=== PATIENT | male | born 1980 | race Caucasian/White ===

== ENCOUNTER 2018-08-08 10:26 | Emergency (ER) | payer SELFPAY ==
[2018-08-08 11:43] VITALS: BP 113/73
--- NOTE | 2018-08-08 12:13 | UC ---
Skin Complaint HPI - HPI Summary HPI Summary: 37 year old male presents with 1 week history of rash to his bilateral forearms. States rash is itchy and tender to touch. Started with a couple of lesions and has spread to other areas on his forearms. Denies fever, chills, swelling of lips, tongue, throat, difficulty breathing, drainage, changes in soaps, detergents, medications, diet, or known contact with environmental irritants. - History of Current Complaint Chief Complaint: UCSkin Time Seen by Provider: 08/08/18 11:56 Stated Complaint: SKIN CONCERN Hx Obtained From: Patient Pain Intensity: 2 - Allergy/Home Medications Allergies/Adverse Reactions: Allergies Allergy/AdvReac Type Severity Reaction Status Date / Time No Known Allergies Allergy Verified 08/08/18 11:40 Home Medications: Home Medications Activated Charcoal [Charcoal] 200 mg PO ONCE 08/08/18 [History Confirmed ] PMH/Surg Hx/FS Hx/Imm Hx Previously Healthy: Yes - Denies significant PMH - Surgical History Surgical History: None - Family History Known Family History: Positive: Non-Contributory - Social History Occupation: Employed Full-time Lives: Dormitory/Roommates Alcohol Use: Occasionally Substance Use Type: None Smoking Status (MU): Light Every Day Tobacco Smoker Type: Cigarettes, Smokeless Tobacco Amount Used/How Often: smokes socially; chews daily Review of Systems All Other Systems Reviewed And Are Negative: Yes Constitutional: Negative: Fever, Chills Skin: Positive: Rash - See HPI ENT: Positive: Negative Respiratory: Positive: Negative Cardiovascular: Positive: Negative Gastrointestinal: Positive: Negative Genitourinary: Positive: Negative Musculoskeletal: Positive: Negative Neurological: Positive: Negative Is Patient Immunocompromised?: No Physical Exam - Summary Physical Exam Summary: GENERAL APPEARANCE: Well developed, well nourished, alert and cooperative, and appears to be in no acute distress. EYES: Conjunctiva clear. No drainage. PERRL, EOM intact. Vision is grossly intact. EARS: External auditory canals and tympanic membranes clear, hearing grossly intact. NOSE: No nasal discharge. MOUTH/THROAT: No swelling of lips, tongue, or throat. Pharynx normal No tonsilar inflammation, swelling, exudate, or lesions. Uvula midline. Oral cavity normal. Teeth and gingiva in good general condition. Airway patent. NECK: Neck supple, non-tender without lymphadenopathy. CARDIAC: Normal S1 and S2. No S3, S4 or murmurs. Rhythm is regular. There is no peripheral edema, cyanosis or pallor. Extremities are warm and well perfused. Capillary refill is less than 2 seconds. Peripheral pulses intact. LUNGS: Clear to auscultation without rales, rhonchi, wheezing or diminished breath sounds. ABDOMEN: Positive bowel sounds. Soft, nondistended, nontender. No guarding or rebound. No masses or hepatosplenomegally. MUSKULOSKELETAL: ROM intact to all extremities. No joint erythema or tenderness. Normal muscular development. Normal gait. SKIN: Multiple tender, pruritic, discrete, maculopapular lesions with central excoration and crusting to patient's bilateral forearms. Triage Information Reviewed: Yes Vital Signs: Initial Vital Signs Temp 98.0 F 08/08/18 11:38 Pulse 63 08/08/18 11:38 Resp 15 08/08/18 11:38 BP 113/73 08/08/18 11:38 Pulse Ox 100 08/08/18 11:38 Vital Signs Reviewed: Yes Course/Dx - Course Course Of Treatment: 37 year old male presents with 1 week history of rash to his bilateral forearms. States rash is itchy and tender to touch. Started with a couple of lesions and has spread to other areas on his forearms. Denies fever, chills, swelling of lips, tongue, throat, difficulty breathing, drainage, changes in soaps, detergents, medications, diet, or known contact with environmental irritants. Afebrile. VSS. Exam remarkable for multiple tender, pruritic, discrete, maculopapular lesions with central excoration and crusting to patient' s bilateral forearms. Suspect a folliculitis and will start him on cephalexin 500 mg TID x 5 days and have him use mupirocin ointment twice daily. He is to use an over the counter non-drowsy antihistamine for the itching. He is to return here in 3 days if no improvement in symptoms. Anticipatory guidance and warning symptoms reviewed with the patient. Verbalizes understanding and agrees with POC. - Differential Diagnoses - Skin Complaint Differential Diagnoses: Allergic Reaction, Cellulitis, Contact Dermatitis, Drug Rash, Local Allergic Reaction, MRSA, Poison [place], Poison [place], Tinea, Urticaria - Diagnoses Provider Diagnosis: Folliculitis Discharge - Sign-Out/Discharge Documenting (check all that apply): Patient Departure All imaging exams completed and their final reports reviewed: No Studies - Discharge Plan Condition: Stable Disposition: HOME Prescriptions: cephALEXin [Keflex] 500 mg PO TID 5 Days #15 capsule Mupirocin 2% OINT* [Bactroban 2 % Oint*] 1 applic TOPICAL BID #1 tube Patient Education Materials: Folliculitis (ED) Referrals: No Primary Care Phys,NOPCP [Primary Care Provider] - Additional Instructions: I suspect that you have bacterial infection of the skin called folliculitis. Take cephalexin 500 mg 1 capsule three times a day for 5 days. Apply mupirocin ointment to the affected area(s) twice a day. You may take an over the counter non-drowsy antihistamine such as Zyrtec, Claritin, or Aysha twice a day for the itching. You may use the generic form of these medications. Return here in 5 days if symptoms do not improve. Seek immediate medical attention in the emergency room if you have any fever, chills, swelling of the lips, tongue, or throat, difficulty breathing, or any worsening of symptoms. - Billing Disposition and Condition Condition: STABLE Disposition: Home
== END 2018-08-08 12:26 | disposition home or self-care (01) ==
LOC: UCCORT 10:26
DX: L73.9 Follicular disorder, unspecified (principal); F17.210 Nicotine dependence, cigarettes, uncomplicated
CPT/HCPCS: 99202; G0463